=== PATIENT | female | born 1980 | race American Indian/Alaskan Native ===

== ENCOUNTER 2017-10-12 18:42 | Emergency (ER) | payer SELFPAY ==
[2017-10-12 19:21] VITALS: BP 121/64
[2017-10-12] MEDS ORDERED: TYLENOL PO ONE (19:22)
[2017-10-12] MEDS ORDERED: TYLENOL ONE (19:24)
== END 2017-10-13 07:11 | disposition left against medical advice (07) ==
LOC: ED 18:42
DX: S61.219A Laceration without foreign body of unspecified finger without damage to nail, initial encounter (principal); Z53.21 Procedure and treatment not carried out due to patient leaving prior to being seen by health care provider; W45.8XXA Other foreign body or object entering through skin, initial encounter; Y93.89 Activity, other specified; Y99.8 Other external cause status; Y92.89 Other specified places as the place of occurrence of the external cause